=== PATIENT | female | born 1995 | race American Indian/Alaskan Native ===

== ENCOUNTER 2019-08-22 12:12 | Inpatient (IN) | payer MEDICAID ==
[2019-08-22] MEDS ORDERED: LACTATED RINGERS 1,000 ML ONE (12:54)
--- NOTE | 2019-08-22 12:59 | History and Physical Report ---
History of Present Illness Date of examination: 08/22/19 ("my water broke") Date of admission: 08/22/2019 History of present illness: EDC Confirmation: 09/14/2019 Gestational Age: 8 3/7 weeks Past History : 3 Term Births: 2 Premature Births: 0 Living Children: 2 Para: 2 Mult. Births: 0 Prev : 2 Aborta: 0 Elect. Ab: 0 Spont. Ab: 0 Ectopics: 0 # 1 Delivery date: 04/05/2014 Weeks Gestation: 39 labor: no Delivery type: Hours of labor: 48 Anesthesia type: epidural Delivery location: [facility] Sex: Male weight: 8-9 Name: Jr Luca Comments: Failed induction for elevated BP # 2 Delivery date: 07/05/2017 Weeks Gestation: 39 labor: no Delivery type: Anesthesia type: spinal [place] [facility] [place] Sex: Male weight: 10-9 Name: Edmund Past Medical History: Anemia (2013) Blood Transfusion (2013) Past Surgical History: (2013) (2017) Family History Summary: Other family member - Has No Family History of Ovarvian Cancer - Entered On: 02/05/2019 Other family member - Has No Family History of Colon Cancer - Entered On: 02/05/2019 Other family member - Has No Family History of Breast Cancer - Entered On: 02/05/2019 Other family member - Has Family History of Hypertension - Entered On: 02/05/2019 Social History: Marital Status: Children: 2 Occupation: unemployed Risk Factors: Smoked Tobacco Use: Current every day smoker Cigarettes: Yes -- 1/3 pack(s) per day, Year started: 2016 Passive smoke exposure: no HIV high-risk behavior: low risk Alcohol use: no Past Medical History Blood Transfusions: yes Surgery (Non-leading firefighter): (2013) (2017) Abnormal PAP: negative Uterine Anomaly: negative Social Hx: Marital Status: Children: 2 Occupation: unemployed Infection History Hx of STD: chlamydia HIV Risk Eval: low risk Hepatitis B Risk Eval: low risk Personal hx. of genital herpes: no Genetic History Congenital Heart Defect: Mom: no Dad: no Jenise Disease: Mom: no Dad: no Thalassemia Mom: no Dad: no Neural Tube Defect Mom: no Dad: no Down's Syndrome Mom: no Dad: no Edgar-Sachs Mom: no Dad: no Sickle Cell Disease/Trait Mom: no Dad: no Hemophilia Mom: no Dad: no Muscular Dystrophy Mom: no Dad: no Cystic Fibrosis Mom: no Dad: no [place] Chorea Mom: no Dad: no Mental Retardation Mom: no Dad: no Fragile X Mom: no Dad: no Other Genetic/Chromosomal Disorder Mom: no Dad: no Child w/other defect Mom: no Dad: no Active Medications (reviewed today): None Current Allergies (reviewed today): No known allergies Past History - Obstetrical History Expected Date of Delivery: 09/14/19 Actual Gestation: 36 Week(s) 5 Day(s) : 3 Para: 2 (both by c/s) Hx # Term Pregnancies: 2 Number of Pregnancies: 0 Spontaneous Abortions: 0 Induced : 0 Number of Living Children: 2 Medications and Allergies Allergies Allergy/AdvReac Type Severity Reaction Status Date / Time No Known Allergies Allergy Unverified 08/23/13 10:32 Home Medications Medication Instructions Recorded Confirmed Last Taken Type Vits96/Iron Fum/Folic 1 each PO QDAY 04/05/14 04/05/14 04/03/14 History [ Tablet] 0900 Ibuprofen [Motrin 600 MG tab] 600 mg PO Q6H PRN #30 tablet 04/08/14 Unknown Rx labetaloL [Labetalol 100mg TAB] 100 mg PO BID #60 tablet 04/08/14 Unknown Rx oxyCODONE /ACETAMINOPHEN [Percocet 2 tab PO Q6H PRN #30 tablet 04/08/14 Unknown Rx 5/325 mg] - Vital Signs Vital signs: Vital Signs Pulse BP 90 132/74 08/22/19 12:16 08/22/19 12:16 Temp Pulse Resp BP Pulse Ox 94 H 132/74 100 08/22/19 12:33 08/22/19 12:16 08/22/19 12:33 - Physical Exam Breasts: Positive: deferred Cardiovascular: Regular rate, Normal S1, Normal S2 Lungs: Positive: Clear to auscultation Abdomen: Positive: normal appearance, soft, normal bowel sounds. Negative: distention, tenderness Genitourinary (Female): Positive: normal external genitalia Vulva: both: normal Vagina: Positive: normal moisture. Negative: discharge Cervix: Negative: lesion, discharge Uterus: Positive: normal size, normal contour Adnexa: both: normal Anus/Rectum: Positive: normal perianal skin, heme negative. Negative: rectal mass, hemorrhoids Extremities: Positive: normal, edema Deep Tendon Reflex Grade: Normal +2 - Obstetrical FHR: category 1 Uterine Contraction Monitor Mode: External Cervical Dilatation: 1 (clear fluid continues to leak from vagina) Cervical Effacement Percentage: 40 station: -4 Uterine Contraction Pattern: Irregular Uterine Tone Measurement Phase: Resting Uterine Contraction Intensity: Mild Results Result Diagrams: 08/22/19 13:05 All other labs normal. GBS negative HBsAg Screen Negative Negative *1 RPR Non Reactive Non Reactive *2 Rubella Antibodies, IgG 2.08 index Immune >0.99 *3 Non-immune <0.90 Equivocal 0.90 - 0.99 Immune >0.99 ABO Grouping O *4 Rh Factor Positive *5 Please note: Prior records for this patient's ABO / Rh type are not available for additional verification. Antibody Screen Negative Negative *6 WBC 7.9 x10E3/uL 3.4-10.8 *7 RBC 4.15 x10E6/uL 3.77-5.28 *8 Hemoglobin 12.1 g/dL 11.1-15.9 *9 Hematocrit 37.0 % 34.0-46.6 *10 MCV 89 fL 79-97 *11 MCH 29.2 pg 26.6-33.0 *12 MCHC 32.7 g/dL 31.5-35.7 *13 RDW 14.7 % 12.3-15.4 *14 Platelets 201 x10E3/uL 150-450 *15 Neutrophils 73 % Not Estab. *16 Lymphs 20 % Not Estab. *17 Monocytes 6 % Not Estab. *18 Eos 1 % Not Estab. *19 Basos 0 % Not Estab. *20 ! Immature Cells <No Reported Value> *21 Neutrophils (Absolute) 5.8 x10E3/uL 1.4-7.0 *22 Lymphs (Absolute) 1.6 x10E3/uL 0.7-3.1 *23 Monocytes(Absolute) 0.5 x10E3/uL 0.1-0.9 *24 Eos (Absolute) 0.1 x10E3/uL 0.0-0.4 *25 Baso (Absolute) 0.0 x10E3/uL 0.0-0.2 *26 ! Immature Granulocytes 0 % Not Estab. *27 ! Immature Grans (Abs) 0.0 x10E3/uL 0.0-0.1 *28 ! NRBC <No Reported Value> *29 Hematology Comments: <No Reported Value> *30 Tests: (2) HB Solu + Rflx [facility] (512314) Hemoglobin (Hgb) Solubility Negative Negative *31 Tests: (3) Panel 106541 ([id number]) HIV Screen 4th Generation wRfx Non Reactive Non Reactive *32 Tests: (4) Gest. Diabetes 1-Hr Screen (878155) ! Gestational Diabetes Screen 114 mg/dL 65-139 *33 According to ADA, a glucose threshold of >139 mg/dL after 50-gram load identifies approximately 80% of women with gestational diabetes mellitus, while the sensitivity is further increased to approximately 90% by a threshold of >129 mg/dL. Tests: (5) HCV Ab w/Rflx to Verification ([id number]) ! HCV Ab <0.1 s/co ratio 0.0-0.9 *34 Tests: (6) Comment: ([id number]) ! Comment: SPRCS *35 Non reactive HCV antibody screen is consistent with no HCV infection, unless recent infection is suspected or other evidence exists to indicate HCV infection. Tests: (7) Urine Culture, Routine ([id number]) Urine Culture, Routine Final report *36 Tests: (8) Result ([id number]) ! Result 1 No growth *37 Assessment and Plan Anesthesia aware, NICU aware. Pt moving to OR. Dr Oswald notified - Patient Problems (1) Previous section Onset Date: ~08/22/19 Current Visit: Yes Status: Acute Plan to address problem: 23yo @ 36 w with PPROM @ 1130 today Pt ate @ 1100 She is a previous c/s X 2 Orders in EMR for pre-op. Consents signed. Dr Oswald aware Will plan for 1700. (2) Gestational diabetes mellitus (GDM) Onset Date: ~08/22/19 Current Visit: Yes Status: Acute Qualifiers: Gestational diabetes mellitus control: unspecified Trimester: third trimester Qualified Code(s): O24.419 - Gestational diabetes mellitus in , unspecified control Plan to address problem: [facility]. Has not started therapy. She had checked her BS @ home. Value unknown. BS ordered.
[2019-08-22] MEDS ORDERED: BICITRA ORAL LIQD 30ML PO ONE (13:01)
[2019-08-22] MEDS ORDERED: METOCLOPRAMIDE 10 MG/2 ML INJ IV ONE (13:01)
[2019-08-22] MEDS ORDERED: FAMOTIDINE 20 MG/2 ML INJ IV ONE (13:01)
[2019-08-22] MEDS: LACTATED RINGERS 1,000 ML IV SCH ×2 (13:14→15:55)
[2019-08-22 13:28] LABS: Basophils % (Auto) 0.3 % (0.0-1.8); Eosinophils % (Auto) 0.4 % (0.0-4.3); Hematocrit 32.1 % (30.3-42.9); Hemoglobin 10.6 gm/dl (10.1-14.3); Lymphocytes # (Auto) 1.4 K/mm3 (1.2-5.4); Lymphocytes % (Auto) 17.9 % (13.4-35.0); Mean Corpuscular HGB Conc 33 % (30-34); Mean Corpuscular Volume 87 fl (79-97); Monocytes # (Auto) 0.7 K/mm3 (0.0-0.8); Monocytes % (Auto) 8.5 % (0.0-7.3); Platelet Count 151 K/mm3 (140-440); Red Blood Count 3.71 M/mm3 (3.65-5.03); Red Cell Distribution Width 14.2 % (13.2-15.2)
[2019-08-22] MEDS ORDERED: OXYTOCIN 20 UNIT/1000ML DRIP 20 UNITS/1,000 ML BAG IV SCH ×2 (14:00→20:45)
--- NOTE | 2019-08-22 16:45 | Anesthesia Consultation ---
Anesthesia Consult and Med Hx Date of service: 08/22/19 - Airway Anesthetic Teeth Evaluation: Good ROM Head & Neck: Adequate Mental/Hyoid Distance: Adequate Mallampati Class: Class II Intubation Access Assessment: Probably Good - Pulmonary Exam CTA: Yes - Cardiac Exam Cardiac Exam: RRR - Pre-Operative Health Status ASA Pre-Surgery Classification: ASA3 Proposed Anesthetic Plan: Spinal - Pulmonary Hx Smoking: Yes Hx Asthma: No COPD: No Hx Pneumonia: No - Cardiovascular System Hx Hypertension: Yes (hx, no meds) - Central Nervous System Hx Seizures: No Hx Psychiatric Problems: No - Endocrine Hx Renal Disease: No Hx End Stage Renal Disease: No Hx Hypothyroidism: No Hx Hyperthyroidism: No - Hematic Hx Anemia: Yes Hx Sickle Cell Disease: No - Other Systems Hx Alcohol Use: No Hx Cancer: No Hx Obesity: Yes (morbid obesity)
--- NOTE | 2019-08-22 16:46 | Anesthesia Day of Surgery ---
Anesthesia Day of Surgery - Day of Surgery Patient Examined: Yes Patient H&P Reviewed: Yes Patient is NPO: Yes
[2019-08-22] MEDS ORDERED: BUPIVACAINE/PF (0.5%) 5 MG/1 ML 30 ML VIAL INFILTRATI ONE (17:26)
[2019-08-22] MEDS ORDERED: SODIUM CHLORIDE 0.9% 500 ML 500 ML ONE (17:26)
[2019-08-22] MEDS ORDERED: ONDANSETRON 4 MG/2 ML INJ ONE (17:26)
[2019-08-22] MEDS ORDERED: KETOROLAC 30 MG/1 ML INJ ONE (17:26)
[2019-08-22] MEDS ORDERED: DEXMEDETOMIDINE 200 MCG/2 ML VIAL IV ONE (17:26)
[2019-08-22] MEDS ORDERED: PHENYLEPHRINE/NS 1,000 MCG/10 ML SYRINGE (OR USE) IV ONE (17:26)
[2019-08-22] MEDS ORDERED: OXYTOCIN 10 UNIT/1 ML INJ ONE (17:26)
[2019-08-22] MEDS ORDERED: WATER FOR IRRIG STERILE 1,500 ML BOTTLE IR ONE (17:29)
[2019-08-22] MEDS ORDERED: SODIUM CHLORIDE 0.9% IRR 1,500 ML BOTTLE IR ONE (17:29)
--- NOTE | 2019-08-22 18:51 | Operative Report ---
Operative Report Operative Report: Date of operation: 08/22/2019 Pre-operative diagnosis: 1. 36 weeks gestational age 2. Premature rupture of membranes 3. Previous delivery desires repeat delivery 4. BMI 47.5 5. Gestational diabetes 6. Smoker Post-operative diagnosis: 1. 36 weeks gestational age 2. Premature rupture of membranes 3. Previous delivery desires repeat delivery 4. BMI 47.5 5. Gestational diabetes 6. Smoker Procedure name(s): Low transverse delivery Surgeon: Gerri Oswald MD Head Wood Grinder: Kathy Castaneda CNM Anesthesia: Spinal EBL: 800 mL Urine output: 100 mL of clear urine out at the end of the procedure Fluids: 1 L Findings: Liveborn male infant weight 10 Lbs. 4 oz. Apgars of 8 and 8 at one and 5 minutes Indications: Premature rupture of membranes Procedure: Patient was taking to the operating room. Epidural anesthesia was placed. Patient was then prepped and draped in the usual sterile fashion Timeout was performed. Once an appropriate level of anesthesia was noted, a Pfannenstiel incision was made and extended the fascia which was incised and extended lateral direction. The overlying fascia was sharply dissected away from the underlying rectus muscles in the superior inferior direction. The midline was entered bluntly. Bladder blade was placed. Vesicouterine fold was incised with blunt dissection bladder flap was created. A transverse incision was made in the lower uterine segment and extended superolateral direction with finger fractionation. Clear fluid was noted. was delivered from the cephalic OP position, with spontaneous cry and excellent tone. Mouth and nose bulb suctioned. Cord was doubly clamped and cut was given to the resuscitation team present. Placenta was delivered. The uterus was exteriorized and cleaned of any further placental tissue and products of conception. Uterine incision was approximated using 0 Vicryl in a running interlocking stitch followed by further suture of 0 Vicryl in imbricating fashion. When hemostasis was noted the uterus was allowed back in the pelvic cavity. Pelvis was irrigated with warm normal saline. Heema Lizzie was placed over the incision to ensure hemostasis. Once hemostasis was noted the rectus muscles were approximated using 0 Vicryl interrupted simple stitches 3. Once hemostasis was noted the fascia was approximated using 0 Vicryl simple running stitch. The incision was irrigated with warm saline, once hemostasis as noted, the subcuticular adipose tissue was reapproximated using 0-0 Vicryl in a simple running fashion. Skin was approximated using 4-0 Vicryl on a Randolph needle in a subcuticular manner. Counts were correct x3. Patient tolerated the procedure well, she was taken to recovery room in stable condition. Garland cath was draining clear yellow urine in the procedure.
[2019-08-22] MEDS ORDERED: LACTATED RINGERS 1,000 ML IV SCH (20:45)
[2019-08-22] MEDS ORDERED: WITCH HAZEL/ GLYCERIN PAD TP PRN (20:45)
[2019-08-22] MEDS ORDERED: NALOXONE 0.4 MG/1 ML INJ IV PRN (20:45)
[2019-08-22] MEDS ORDERED: LANOLIN/ZINC/DIMETHICONE (LANSINOH) 7 GM TP PRN (20:45)
[2019-08-22] MEDS ORDERED: MORPHINE 2 MG/1 ML INJ IV PRN (20:45)
[2019-08-22] MEDS: MORPHINE 4 MG/1 ML INJ IV PRN (21:36)
[2019-08-23] MEDS: KETOROLAC 30 MG/1 ML INJ IV SCH ×3 (00:17→14:20)
[2019-08-23] MEDS: MORPHINE 4 MG/1 ML INJ IV PRN (03:51)
[2019-08-23] MEDS ORDERED: TETANUS,DIPH,PERTUSS(ACELL) VACCINE 0.5 ML SYRINGE IM ONE (06:00)
[2019-08-23] MEDS ORDERED: LACTATED RINGERS 1,000 ML IV SCH (06:00)
[2019-08-23 08:01] LABS: Hematocrit 31.9 % (30.3-42.9); Hemoglobin 10.5 gm/dl (10.1-14.3)
--- NOTE | 2019-08-23 08:24 | Progress Note ---
Assessment and Plan lochia scant, fundus firm, incision dressed - dressing D&I. VSSAF. postop H&H 10.5/31.9. Pt has been oob to bathroom, no complaints at this time. - Patient Problems (1) delivery delivered Current Visit: Yes Status: Acute Plan to address problem: continue post op pathway advance diet and activity as tolerated. Subjective - Subjective Date of service: 08/23/19 Principal diagnosis: postop day #1 s/p repeat c/s Patient reports: appetite normal, voiding normally, pain well controlled, ambulating normally, no dizzy ambulation, no nauseated : in NICU Objective - Vital Signs Latest vital signs: Vital Signs Temp Pulse Resp BP Pulse Ox 08/23/19 07:09 20 08/23/19 05:45 98.1 F 78 18 124/77 100 08/23/19 01:27 98.0 F 78 18 113/58 99 08/23/19 00:17 20 08/22/19 19:59 97.7 F 71 20 106/60 97 08/22/19 19:15 97.8 F 71 17 108/55 99 08/22/19 19:10 97.7 F 08/22/19 19:00 73 18 117/56 98 08/22/19 18:55 70 16 117/59 97 08/22/19 18:45 68 18 112/62 100 08/22/19 18:40 75 19 110/62 99 08/22/19 18:35 76 17 114/62 99 08/22/19 18:32 97.6 F 75 16 111/56 100 08/22/19 16:35 86 97 08/22/19 16:30 85 97 08/22/19 16:03 98.9 F 08/22/19 14:02 90 112/73 08/22/19 13:47 88 118/69 08/22/19 13:32 80 116/68 08/22/19 12:57 93 H 125/62 08/22/19 12:33 94 H 100 08/22/19 12:28 91 H 100 08/22/19 12:25 98.3 F 97 H 20 100 08/22/19 12:23 97 H 100 08/22/19 12:18 96 H 98 08/22/19 12:16 90 132/74 Intake and Output 08/22/19 08/23/19 08/23/19 23:59 07:59 15:59 Intake Total 1400 1200 Output Total 150 1200 Balance 1250 0 Intake: IV 1400 Intake, Free Water 1200 Output: Urine 150 1200 Indwelling Catheter 1200 Other: Total, Output Amount 600 Estimated Blood Loss 800 - Exam Breasts: Present: normal Cardiovascular: Present: Regular rate Lungs: Present: Clear to auscultation, Normal air movement Abdomen: Present: normal appearance, soft Vulva: both: normal Uterus: Present: normal, firm Extremities: Present: normal Incision: Present: normal, dry, dressed - Labs Labs: Abnormal lab results 08/22/19 08/22/19 08/22/19 Range/Units 13:05 16:00 17:15 [place] % (Auto) 8.5 H (0.0-7.3) % Seg Neutrophils % 72.9 H (40.0-70.0) % POC Glucose 67 L (70-105) Hemoglobin A1c 6.6 H (4-6) %
[2019-08-23] MEDS: oxyCODONE /ACETAMINOPHEN 5-325MG TAB PO PRN ×2 (09:24→18:37)
[2019-08-23] MEDS: IBUPROFEN 800 MG TAB PO PRN (23:42)
[2019-08-24] MEDS: oxyCODONE /ACETAMINOPHEN 5-325MG TAB PO PRN ×3 (06:05→20:43)
--- NOTE | 2019-08-24 08:16 | Progress Note ---
Assessment and Plan - Patient Problems (1) delivery delivered Onset Date: ~08/22/19 Current Visit: Yes Status: Acute Plan to address problem: pt in very good spirits this AM. No c/o voiced Desires d/c tomorrow VSS FF below umb Lochia scant Incision D&I Medical Equipment Technician s/sx of anemia Doing well s/p c/s P: continue pathway advance as tolerated. Subjective - Subjective Date of service: 08/24/19 (pt req d/c tomorrow) Principal diagnosis: postop day #2 s/p repeat c/s Interval history: EDC Confirmation: 09/14/2019 Gestational Age: 8 3/7 weeks Past History : 3 Term Births: 2 Premature Births: 0 Living Children: 2 Para: 2 Mult. Births: 0 Prev : 2 Aborta: 0 Elect. Ab: 0 Spont. Ab: 0 Ectopics: 0 # 1 Delivery date: 04/05/2014 Weeks Gestation: 39 labor: no Delivery type: Hours of labor: 48 Anesthesia type: epidural Delivery location: [facility] Sex: Male weight: 8-9 Name: Jr Luca Comments: Failed induction for elevated BP # 2 Delivery date: 07/05/2017 Weeks Gestation: 39 labor: no Delivery type: Anesthesia type: spinal Delivery location: [facility] [place] Sex: Male weight: 10-9 Name: Edmund Past Medical History: Anemia (2013) Blood Transfusion (2013) Past Surgical History: (2013) (2017) Family History Summary: Other family member - Has No Family History of Ovarvian Cancer - Entered On: 02/05/2019 Other family member - Has No Family History of Colon Cancer - Entered On: 02/05/2019 Other family member - Has No Family History of Breast Cancer - Entered On: 02/05/2019 Other family member - Has Family History of Hypertension - Entered On: 02/05/2019 Social History: Marital Status: Children: 2 Occupation: unemployed Risk Factors: Smoked Tobacco Use: Current every day smoker Cigarettes: Yes -- 1/3 pack(s) per day, Year started: 2016 Passive smoke exposure: no HIV high-risk behavior: low risk Alcohol use: no Past Medical History Blood Transfusions: yes Surgery (Non-gynecology teacher): (2014) (2018) Abnormal PAP: negative Uterine Anomaly: negative Social Hx: Marital Status: Children: 2 Occupation: unemployed Infection History Hx of STD: chlamydia HIV Risk Eval: low risk Hepatitis B Risk Eval: low risk Personal hx. of genital herpes: no Genetic History Congenital Heart Defect: Mom: no Dad: no Jenise Disease: Mom: no Dad: no Thalassemia Mom: no Dad: no Neural Tube Defect Mom: no Dad: no Down's Syndrome Mom: no Dad: no Edgar-Sachs Mom: no Dad: no Sickle Cell Disease/Trait Mom: no Dad: no Hemophilia Mom: no Dad: no Muscular Dystrophy Mom: no Dad: no Cystic Fibrosis Mom: no Dad: no [place] Chorea Mom: no Dad: no Mental Retardation Mom: no Dad: no Fragile X Mom: no Dad: no Other Genetic/Chromosomal Disorder Mom: no Dad: no Child w/other defect Mom: no Dad: no Active Medications (reviewed today): None Current Allergies (reviewed today): No known allergies Patient reports: appetite normal, voiding normally, pain well controlled, ambulating normally [place]: doing well Objective - Vital Signs Latest vital signs: Vital Signs Temp Pulse Resp BP BP Pulse Ox 08/24/19 00:10 97.6 F 80 20 121/72 98 08/23/19 15:50 98.2 F 72 20 114/67 08/23/19 14:20 20 08/23/19 13:01 98.5 F 80 20 125/86 08/23/19 09:24 20 Intake and Output 08/23/19 08/24/19 08/24/19 22:59 06:59 14:59 Intake Total 720 240 Output Total 400 Balance 320 240 Intake: Oral 720 240 Output: Urine 400 Void 400 Other: Total, Intake Amount 240 240 Total, Output Amount 400 # Voids Void 1 1 - Exam Breasts: Present: normal Cardiovascular: Present: Regular rate Lungs: Present: Clear to auscultation Abdomen: Present: normal appearance, soft, normal bowel sounds Uterus: Present: normal, fundal height below umbilicus Extremities: Present: normal Incision: Present: normal, dry, intact
[2019-08-24] MEDS: IBUPROFEN 800 MG TAB PO PRN ×2 (09:10→18:02)
[2019-08-25] MEDS: IBUPROFEN 800 MG TAB PO PRN ×2 (01:25→11:38)
--- NOTE | 2019-08-25 09:21 | Discharge Summary ---
Providers - Providers Date of Admission: 08/22/19 17:36 Date of discharge: 08/25/19 (pt agrees with d/c) Attending physician: AZAR SCHWARTZ 08/22/19 20:45 Consult to Electric Sealing Machine Operator [CONS] Routine Reason For Exam: Primary care physician: AZAR SCHWARTZ Hospitalization Reason for admission: labor, rupture of membranes Delivery: Procedure: repeat low transverse Episiotomy: none Laceration: none Incision: normal, dry, intact Other procedures: none complications: none Discharge diagnosis: delivery Center baby: male ([id number] @ 36w) Hospital course: uncomplicated repeat section Pt desires d/c VSS FF below umb Lochia scant Incision D&I No s/sx of anemia Doing well s/p section. P: RTO 1 week incision check RX provided Condition at discharge: Good Disposition: DC-01 TO HOME OR SELFCARE - Discharge Diagnoses (1) delivery delivered Status: Acute Comment: RTO 1 week post-op care Plan - Discharge Medications Prescriptions: Lidocain2.5%/Prilocai2.5% [Emla] 5 gm TP ONCE #1 tube Ibuprofen [Motrin 800 MG tab] 800 mg PO TID PRN #30 tablet PRN Reason: Pain oxyCODONE /ACETAMINOPHEN [Percocet 5/325 mg] 1 - 2 tab PO Q6HR PRN #20 tablet PRN Reason: Pain - Provider Discharge Summary Activity: routine, no sex for 6 weeks, no heavy lifting 4 weeks, no strenuous exercise Diet: routine Instructions: routine Additional instructions: [] Smoking cessation referral if applicable(refer to patient education folder for contact #) [] Refer to [facility] Booklet Call your doctor immediately for: * Fever > 100.5 * Heavy vaginal bleeding ( >1 pad per hour) * Severe persistent headache * Shortness of breath * Reddened, hot, painful area to leg or breast * Drainage or odor from incision. * Keep incision clean and dry at all times and follow doctor's instructions regarding bathing/showering - Follow up plan Follow up: AZAR SCHWARTZ MD [Primary Care Provider] - 7 Days (Congratulations! Please call [phone] to schedule your postoperative visit and your son's circumcision in 1 week. Bring the EMLA cream with you to your son's visit. Do NOT use at home. Take medications as prescribed. Call with any concerns.)
[2019-08-25] MEDS ORDERED: medroxyPROGESTERone ACETATE 150 MG/ML SYRINGE IM ONE (15:00)
[2019-08-25 16:19] VITALS: BP 129/68
== END 2019-08-25 15:00 | disposition home or self-care (01) | DRG 765 ==
LOC: TRG 12:12 → APU 17:36 → OB 20:38
PROVIDERS: ADMIT Obstetrics & Gynecology; ATTEND Obstetrics & Gynecology
PROC: 10D00Z1 Extraction of Products of Conception, Low, Open Approach (ICD-10-PCS; principal; 2019-08-22)
PROC: 3E0R3BZ Introduction of Anesthetic Agent into Spinal Canal, Percutaneous Approach (ICD-10-PCS; 2019-08-22)
PROC: 00HU33Z Insertion of Infusion Device into Spinal Canal, Percutaneous Approach (ICD-10-PCS; 2019-08-22)
PROC: 3E0234Z Introduction of Serum, Toxoid and Vaccine into Muscle, Percutaneous Approach (ICD-10-PCS; 2019-08-23)
DX: O42.90 Premature rupture of membranes, unspecified as to length of time between rupture and onset of labor, unspecified weeks of gestation (principal); O60.14X0 Preterm labor third trimester with preterm delivery third trimester, not applicable or unspecified; O34.219 Maternal care for unspecified type scar from previous cesarean delivery; Z3A.36 36 weeks gestation of pregnancy; Z37.0 Single live birth; O24.419 Gestational diabetes mellitus in pregnancy, unspecified control; O99.334 Smoking (tobacco) complicating childbirth; Z23 Encounter for immunization
CPT/HCPCS: 36415; 82962; 83036; 85014; 85018; 85025; 86592; 86850; 86900; 86901; 88307; G0378; A6250; J0690; J1050; J1885; J2270; J2370; J2405; J2590; J2765; J3490; J7040; J7120